=== PATIENT | female | born 1965 | race Caucasian/White ===

== ENCOUNTER 2024-11-01 08:24 | Emergency (ER) | payer OTHER ==
[~2024-11-01] VITALS: Ht 162.6 cm; Wt 165.6 kg
[2024-11-01] MEDS ORDERED: ASPIRIN 81 MG CHEW PO ONE (08:45)
[2024-11-01 08:48] LABS: BASOPHILS 1.1 % (0-2); EOSINOPHILS 3.1 % (0-6); HEMATOCRIT 41.3 % (35.0-50.0); HEMOGLOBIN 13.6 g/dL (12.0-18.0); LYMPHOCYTES 22.1 % (24-44); MCH 27.1 (27-36); MCV 82.4 fl (81-99); MONOCYTES 6.7 % (0-12); PLATELET COUNT 342 K/uL (140-440); RBC 5.01 M/ul (4.3-5.7); RDW 16.1 (10.5-15.0)
[2024-11-01 09:01] LABS: ALBUMIN 3.8 g/dL (3.4-5.0); ALBUMIN/GLOBULIN RATIO 0.88 (1.1-2.4); ANION GAP 14.8 (7-21); BILIRUBIN, TOTAL 0.3 ng/dL (0.2-1.0); BUN/CREATININE RATIO 16.85 (6.0-28.6); CALCIUM 9.2 mg/dL (8.5-10.1); CREATININE, SERUM 0.89 mg/dL (0.55-1.02); POTASSIUM 3.8 mmol/L (3.5-5.1); PROTEIN, TOTAL 8.1 g/dL (6.4-8.2)
[2024-11-01 13:12] VITALS: BP 210/77
== END 2024-11-01 13:12 | disposition home or self-care (01) ==
LOC: ED 08:24
PROVIDERS: Internal Medicine
DX: R07.89 Other chest pain (principal); I10 Essential (primary) hypertension; G47.33 Obstructive sleep apnea (adult) (pediatric); E66.01 Morbid (severe) obesity due to excess calories; Z79.899 Other long term (current) drug therapy
CPT/HCPCS: 36415; 71045; 80053; 83735; 84484; 85025; 93005; 93010; 99285-25